=== PATIENT | male | born 1965 | race Caucasian/White ===

== ENCOUNTER 2017-10-12 06:44 | Day surgery (SDC) | payer BC ==
[~2017-10-12 06:44] MED LIST: LIDOCAINE 1% 2 ML INJ ID PRN; LR 1,000 ML IV ONE
[2017-10-12] MEDS ORDERED: ceFAZolin 3 GM in D5W 100 ML IV ONE (07:53)
--- NOTE | 2017-10-12 07:56 | PDHPUP ---
History & Physical Update H&P update statement: This history and physical update is based on an assessment of the patient which was completed after admission or registration (within 24 hours), but prior to the surgery/procedure. H&P update: H&P reviewed & patient examined, no change in patient's condition since H&P completed
[2017-10-12] MEDS ORDERED: LR 1,000 ML IV SCH ×2 (08:00→10:30)
[2017-10-12] MEDS ORDERED: LIDOCAINE 1% 300 MG/30 ML SDV ONE (08:10)
[2017-10-12] MEDS ORDERED: BACITRACIN ZINC 14.2 GM OINTTUBE TP ONE ×2 (08:10→08:57)
[2017-10-12] MEDS ORDERED: BUPIVACAINE 0.25% 30 ML SDV ONE ×2 (08:11→08:58)
[2017-10-12] MEDS ORDERED: OXYMETAZOLINE 30 ML NASAL SPRAY ONE ×2 (08:11→08:57)
[2017-10-12] MEDS ORDERED: MIDAZOLAM 2 MG/2 ML VIAL IVP ONE (08:12)
--- NOTE | 2017-10-12 08:16 | PDANEPAE ---
ANE History of Present Illness 51 year old male for cholecystectomy, hernia repair and inferior turbinate surgery. Concerns are increased weight and gerd. ANE Past Medical History - Cardiovascular History Hx Hypertension: No Hx Arrhythmias: No Hx Chest Pain: No Hx Coronary Artery / Peripheral Vascular Disease: No Hx CHF / Valvular Disease: No Hx Palpitations: No - Pulmonary History Hx COPD: No Hx Asthma/Reactive Airway Disease: No Hx Recent Upper Respiratory Infection: No Hx Oxygen in Use at Home: No Hx Sleep Apnea: No Sleep Apnea Screening Result - Last Documented: Negative - Neurologic History Hx Cerebrovascular Accident: No Hx Seizures: No Hx Dementia: No - Endocrine History Hx Diabetes: No - Renal History Hx Renal Disorders: No - Liver History Hx Hepatic Disorders: No - Neurological & Psychiatric Hx Hx Neurological and Psychiatric Disorders: No - Cancer History Hx Cancer: No - Congenital Disorder History Hx Congenital Disorders: No - GI History Hx Gastrointestinal Disorders: Yes Gastrointestinal History Comment: gall stones - Other Health History Other Health History: none - Chronic Pain History Chronic Pain: Yes - Surgical History Prior Surgeries: 3 knee surgeries 15-16 yrs ago ANE Review of Systems Review of systems is: negative Review of Systems: - Exercise capacity METS (RN): 4 METS ANE Patient History - Allergies Allergies/Adverse Reactions: No Known Allergies Allergy (Verified 10/12/17 07:12) - Home Medications Home Medications: NK [No Known Home Meds] 10/05/17 [Last Taken Unknown] - NPO status NPO Since - Liquids (Date): 10/11/17 NPO Since - Liquids (Time): 21:30 NPO Since - Solids (Date): 10/11/17 NPO Since - Solids (Time): 21:30 - Smoking Hx Smoking Status: Never smoked - Family Anes Hx Family Hx Anesthesia Complications: none ANE Labs/Vital Signs - Vital Signs Blood Pressure: 128/82 Heart Rate: 81 Respiratory Rate: 16 O2 Sat (%): 93 Height: 182.88 cm Weight: 113.398 kg ANE Physical Exam - Airway Neck exam: FROM Mallampati Score: Class 2 Mouth exam: normal dental/mouth exam - Pulmonary Pulmonary: no respiratory distress - Cardiovascular Cardiovascular: regular rate and rhythym - ASA Status ASA Status: II ANE Anesthesia Plan Anesthesia Plan: general endotracheal anesthesia
[2017-10-12] MEDS ORDERED: PROPOFOL/EMULSION 500 MG/50 ML BOTTLE IV ONE ×2 (08:17→09:38)
[2017-10-12] MEDS ORDERED: fentaNYL 250 MCG/5 ML INJ ONE (08:18)
[2017-10-12] MEDS ORDERED: SCOPOLAMINE HYDROBROMIDE 1 MG/3 DAYS PATCH TD ONE (08:19)
[2017-10-12] MEDS ORDERED: LIDO/EPI 2%** Not for Epidural 20 ML MDV ONE (08:58)
[2017-10-12] MEDS ORDERED: DEXAMETHASONE 4 MG/ML VIAL ONE ×2 (09:12)
[2017-10-12] MEDS ORDERED: ONDANSETRON 4 MG/2 ML VIAL IVP PRN ×2 (09:38→10:09)
[2017-10-12] MEDS ORDERED: METOCLOPRAMIDE 10 MG/2 ML VIAL IVP PRN (09:38)
[2017-10-12] MEDS ORDERED: MEPERIDINE 25 MG/ML SYR IVP PRN (09:38)
[2017-10-12] MEDS ORDERED: PROMETHAZINE HCL 25 MG/ML INJ IVP PRN (09:38)
[2017-10-12] MEDS ORDERED: ACETAMINOPHEN 500 MG TAB PO PRN (09:38)
[2017-10-12] MEDS ORDERED: DEXAMETHASONE 4 MG/ML VIAL IVP PRN (09:38)
[2017-10-12] MEDS ORDERED: LR 500 ML IV PRN (09:38)
[2017-10-12] MEDS ORDERED: HYDROCODONE/APAP 5/325 TAB PO PRN (09:38)
[2017-10-12] MEDS ORDERED: NALOXONE HCL 0.4 MG/ML INJ IVP PRN (09:38)
[2017-10-12] MEDS ORDERED: HYDROmorphONE/DILAUDID 1 MG/ML INJ IVP PRN ×2 (09:38→10:09)
[2017-10-12] MEDS ORDERED: ALBUTEROL 3 ML DEYVIAL IH PRN (09:38)
[2017-10-12] MEDS ORDERED: ONDANSETRON 4 MG/2 ML VIAL ONE (09:46)
[2017-10-12] MEDS ORDERED: OXYCODONE/APAP 5/325 TAB PO PRN (10:13)
--- NOTE | 2017-10-12 10:16 | POSTOPPROG ---
Post Op Note Date of Operation: 10/12/17 Surgeon: Luis M Ye (, FACS) Anesthesiologist: Katheryn Major MD Anesthesia: GET(General Endotracheal) Pre-op Diagnosis: cholecystitis, chronic + umbilical hernia Post-op Diagnosis: same Procedure: lap isis/repair umbilical hernia Findings: chronic inflammation GB/non-incarcerated umbilical hernia Inf/Abcess present in the surg proc area at time of surgery?: No EBL: Minimal (5ml) Specimen(s): galbladder
[2017-10-12] MEDS ORDERED: LABETALOL HCL 5 MG/ML 20 ML MDV ONE (11:33)
--- NOTE | 2017-10-12 11:34 | POSTANESTH ---
Post Anesthetic Evaluation Cardiovascular Status: Normal, Stable Respiratory Status: Normal, Stable Level of Consciousness/Mental Status: Alert and Oriented, Mildly Sleepy, Arousable Pain Control: Adequate, Prn Tx Ordered Nausea/Vomiting Control: Adequate, Prn Tx Ordered Complications Possibly Related to Anesthesia: None Noted
[2017-10-12] MEDS: LABETALOL HCL 5 MG/ML 20 ML MDV IVP PRN ×2 (11:36→11:48)
--- NOTE | 2017-10-12 11:43 | POSTOPPROG ---
Post Op Note Date of Operation: 10/12/17 Surgeon: Aguila Mcgovern Anesthesia: GET(General Endotracheal) Pre-op Diagnosis: Obstructive septal deviation, inferior turbinate hypertrophy Post-op Diagnosis: Obstructive septal deviation, inferior turbinate hypertrophy Indication: Obstructive septal deviation, inferior turbinate hypertrophy Procedure: Septoplasty, turbinate reduction Findings: Obstructive septal deviation, inferior turbinate hypertrophy Inf/Abcess present in the surg proc area at time of surgery?: No Depth: Deep Incisional (Fascial) EBL: Minimal Complications: NONE Specimen(s): NONE
[2017-10-12 11:48] VITALS: TEMP 98.1
[2017-10-12 11:50] VITALS: PULSE 86
[2017-10-12] MEDS ORDERED: fentaNYL 100 MCG/2 ML INJ ONE (12:11)
[2017-10-12] MEDS: fentaNYL 100 MCG/2 ML INJ IVP PRN ×2 (12:14→12:52)
[2017-10-12 12:54] VITALS: BP 149/92; O2SAT 96
--- NOTE | 2017-10-12 14:35 | GOP ---
[f rep st] OPERATIVE REPORT DATE OF OPERATION: 10/12/2017 SURGEON: Luis M Ye MD, FACS CHEMICAL PROCESS OPERATOR: Darleen Lilly RN-FA ANESTHESIA: General endotracheal. ANESTHESIOLOGIST: Katheryn Major MD. PREOPERATIVE DIAGNOSIS: 1. Cholelithiasis with chronic cholecystitis. 2. Umbilical hernia. POSTOPERATIVE DIAGNOSIS: 1. Cholelithiasis with chronic cholecystitis. 2. Umbilical hernia. PROCEDURE PERFORMED: 1. Laparoscopic cholecystectomy. 2. Repair of umbilical hernia. FINDINGS: Chronic cholecystitis. No evidence of acute infection. Non incarcerated umbilical hernia. Mild hepatic steatosis. ESTIMATED BLOOD LOSS: For this portion of the operation, minimal, (5 mL). DESCRIPTION OF PROCEDURE: After informed consent was obtained, the patient was brought to the operating room and placed under general anesthesia. The abdomen was prepped and draped in the usual fashion. Before proceeding, a time-out and identification of the patient was performed. Three g of Ancef were administered within 30 minutes of cut time. 0.25% Marcaine was used to infiltrate all incision sites. A transverse incision was made below the umbilicus and dissection carried out down to the umbilical stalk, where a 15 mm hernia was identified and dissected from the overlying umbilical skin. The fascial defect was defined circumferentially and the perineum entered under direct visualization. A 12 mm port was established and a pneumoperitoneum created with CO2 gas to a pressure of 14 mmHg. A 30- degree 5 mm scope was introduced. The peritoneal cavity was visualized. Additional 5 mm ports were placed under direct visualization, the 1st in the subxiphoid position to the right of the falciform ligament, the 2nd in the right upper quadrant midclavicular line, and the 3rd in the right upper quadrant anterior axillary line. This allowed introduction of atraumatic grasping forceps. The gallbladder was small, contracted, and filled with stones. It was grasped by the fundus and retracted cephalad, elevating the liver edge. The infundibulum was scarred with prior inflammatory changes. The infundibulum was manipulated anteriorly and posteriorly while the peritoneum was dissected circumferentially around the cystic duct. The cystic artery presented posteriorly and this was dispatched with the Harmonic scalpel. The cystic duct was doubly hemoclipped and divided. The gallbladder was then dissected away from the liver edge with minimal bleeding using the Harmonic scalpel. The gallbladder was retrieved through the umbilical hernial defect using an Endopouch. The operative field appeared hemostatic. The pneumoperitoneum was evacuated. All ports were removed. The umbilical fascial defect was repaired transversely with interrupted 0 Nurolon sutures. The umbilical skin was then tacked to the fascia with interrupted 3-0 Monocryl suture. The subcutaneous tissues of all incisions were closed with 4-0 Monocryl suture in a subcuticular fashion. Mastisol and Steri-Strips and sterile dressings were applied. Dr. Aguila Mcgovern then proceeded to perform nasal septoplasty, to be dictated as a separate operative report. COMPLICATIONS: None. /[id number]/MODL MTDD
--- NOTE | 2017-10-12 17:21 | GOP ---
[f rep st] OPERATIVE REPORT DATE OF OPERATION: SURGEON: Aguila Mcgovern MD ANESTHESIA: General. PREOPERATIVE DIAGNOSIS: Obstructive nasal septal deviation, inferior turbinate hypertrophy. POSTOPERATIVE DIAGNOSIS: Obstructive nasal septal deviation, inferior turbinate hypertrophy. PROCEDURE PERFORMED: Endoscopic septoplasty, inferior turbinate submucosal resection and outfracture . FINDINGS: Severe right posterior and anterior left septal deviation, moderately to severely obstruct jovanna. Bilateral inferior turbinate hypertrophy, moderately obstructive. SPECIMENS: None. ESTIMATED BLOOD LOSS: 20 mL. INDICATIONS: The patient was seen in outpatient clinic and found to have obstructive nasal septal de viation along with inferior turbinate hypertrophy that was recalcitrant to medical therapy. Given hi s history and findings, he was determined to be an appropriate candidate for the above-stated procedu res. The risks, benefits, and alternatives to the procedures were explained at length to the patient who stated he understood and wished to go forward with the procedure. The patient was also schedule d for laparoscopic colectomy with Dr. Ye. It was decided that these cases could occur concomitantl y. The operative date was then scheduled and arranged as such. DESCRIPTION OF PROCEDURE: At the conclusion of Dr. Ye case, the patient was undraped. Once appropriate level of anesthesia was achieved, the patient's bilateral nasal cavities were inject ed with 2% lidocaine with 1:100,000 epinephrine at bilateral inferior turbinates and septum. Afrin-s oaked pledgets were then placed bilaterally. The patient was then prepped and draped in the usual fa shion. The remainder of the case was performed under 0 degree rigid video endoscopic visualization. The Afrin-soaked pledgets were removed bilaterally. A left-sided hemitransfixion incision was creat ed with a needle tip Bovie electrocautery. The submucoperichondrial and submucoperiosteal septal fla ps were elevated with a combination of Gayle elevator and suction Eugene. Once this was completed, a Garrett elevator was used to create a vertical incision at the bony cartilaginous junction. The cont ralateral mucosa was then elevated off the bony septum. A D knife was then used to incise the deviat ed portions of quadrangular cartilage. Care was taken to leave a cm of dorsal and caudal septal supp ort. The incised cartilage was then elevated off the contralateral mucosa with a Gayle elevator. T his was delivered with a Lorelei. A straight going Sarmiento scissor was then used to create a cut in t he superior bony septum. The remainder of the deviated bony septum including a severe right-sided sp ur was removed with the Lorelei. There was a 1.5 cm rent in the right nasal mucosal flap. This wa s closed with a single 4-0 chromic suture. Afrin-soaked pledget was placed in the surgical bed for h emostasis. There was good control of bleeding with this. Mild cautery was used at the base of the c audal septum for some mild bleeding. The hemitransfixion incision was closed with two 4-0 chromic in terrupted sutures after the pledget was removed. The left and right inferior turbinates were then reduced with submucosal resection performed with a t urbinate microdebrider. There was good soft tissue reduction with this bilaterally. Both right and left turbinates were then infractured and outfractured using a Eugene elevator. There was good latera lization with this. At this point, there was excellent visualization from bilateral nasal vestibules through to the nasopharynx. There was some mild bleeding from the right inferior turbinates. This was controlled with Bovie suction electrocautery. Once hemostasis was achieved, bacitracin coated Do yle splints were placed in bilateral nasal cavities and secured in place using a single 3-0 Prolene s uture. The patient tolerated the procedure well and was extubated in the operating room prior to elizabeth ng transferred in good condition to the postanesthesia care unit. COMPLICATIONS: None. /[id number]/MODL
[2017-10-12 17:26] VITALS: RESP 16
[2017-10-12] MEDS ORDERED: SENNOSIDES/DOCUSATE SODIUM TAB PO SCH (21:00)
[2017-10-15] MEDS ORDERED: PATCH REMOVAL 1 EA PATCH TD SCH (08:19)
== END 2017-10-12 17:10 | disposition home or self-care (01) ==
LOC: FSGY 06:44 → F3N 06:44 → UNDOADMOB 06:44 → EDSTATUS 08:30 → F3N 11:47 → F3E 11:47 → FSGY 17:10
PROVIDERS: ATTEND Surgery
PROC: 0WQF0ZZ Repair Abdominal Wall, Open Approach (ICD-10-PCS; principal; 2017-10-12 08:30)
PROC: 0FT44ZZ Resection of Gallbladder, Percutaneous Endoscopic Approach (ICD-10-PCS; principal; 2017-10-12 08:30)
PROC: 09BL8ZZ Excision of Nasal Turbinate, Via Natural or Artificial Opening Endoscopic (ICD-10-PCS; 2017-10-12 08:30)
DX: K80.10 Calculus of gallbladder with chronic cholecystitis without obstruction (principal); K42.9 Umbilical hernia without obstruction or gangrene; J34.89 Other specified disorders of nose and nasal sinuses; J34.2 Deviated nasal septum; J34.3 Hypertrophy of nasal turbinates; J35.1 Hypertrophy of tonsils; R06.83 Snoring
CPT/HCPCS: J0690; J1100; J2250; J2405; J2704; J3010; J3490